=== PATIENT | female | born 1990 | race Caucasian/White ===

== ENCOUNTER 2016-07-16 12:24 | Emergency (ER) | payer OTHER ==
[2016-07-16 13:55] LABS: BASOPHIL 0.2 % (0-2); EOSINOPHIL 0.8 % (0-5); HCT 41.5 % (37.0-47.0); HGB 14.5 g/dl (12.5-16.0); LYMPHOCYTE 19.1 % (15-48); MCH 31.7 pg (25.0-31.0); MCHC 34.9 g/dL (32.0-36.0); MCV 90.6 fL (78.0-100.0); MONOCYTE 5.6 % (0-12); MPV 10.8 fL (6.0-9.5); NEUTROPHIL 74.3 % (41-80); PLT 264 K/uL (150-400); RBC 4.58 M/uL (4.20-5.40); RDW 12.3 % (11.5-14.0); WBC 11.3 K/uL (4.0-10.5)
[2016-07-16 14:16] LABS: CREATININE 0.7 mg/dL (0.5-1.0); POTASSIUM 3.6 mmol/L (3.5-5.1)
[2016-07-16 14:43] LABS: BILIRUBIN NEGATIVE (NEGATIVE); BLOOD NEGATIVE Ery/uL (NEGATIVE); CLARITY CLEAR (CLEAR); COLOR YELLOW (YELLOW); GLUCOSE (U) NORMAL (NORMAL); KETONE (U) NEGATIVE (NEGATIVE); LEUKOCYTES NEGATIVE Leu/uL (NEGATIVE); NITRITE NEGATIVE (NEGATIVE); PROTEIN NEGATIVE (NEGATIVE); UROBILINOGEN 0.2 mg/dL (0.2-1.0)
== END 2016-07-16 17:03 | disposition home or self-care (01) ==
LOC: FER 12:24
PROVIDERS: Nurse Practitioner Family
DX: O20.0 Threatened abortion (principal); O99.331 Smoking (tobacco) complicating pregnancy, first trimester; Z88.1 Allergy status to other antibiotic agents; Z3A.01 Less than 8 weeks gestation of pregnancy
CPT/HCPCS: 36415; 76817; 80048; 81003; 84702; 85025; 86850; 86900; 86901